=== PATIENT | male | born 1990 | race Caucasian/White ===

== ENCOUNTER 2016-10-26 12:24 | Emergency (ER) | payer MEDICAID ==
[~2016-10-26] VITALS: Ht 182.9 cm; Wt 100.2 kg
[2016-10-26 12:47] LABS: Basophils # (auto) 0 uL; Basophils % (auto) 0.6 % (0.0-2.0); Eosinophils # (auto) 0.5 uL; Eosinophils % (auto) 9.5 % (0.0-7.0); Hematocrit 41.1 % (41.0-53.0); Hemoglobin 13.6 g/dL (13.5-17.5); Lymphocytes # (auto) 2.3 uL; Lymphocytes % (auto) 43.1 % (10.0-50.0); Mean Corpuscular Hemoglobin 29.6 pg (28.0-32.0); Mean Corpuscular Hgb Conc. 33.1 g/dL (32.0-36.0); Mean Corpuscular Volume 89.4 fL (80.0-100.0); Mean Platelet Volume 7.1 fL (7.4-10.4); Monocytes # (auto) 0.5 uL; Monocytes % (auto) 10.5 % (0.0-12.0); Neutrophils # (auto) 1.9 uL; Neutrophils % (auto) 36.3 % (37.0-80.0); Platelet Count (auto) 260 10^3/uL (140-450); Red Cell Distribution Width 12.9 % (11.6-16.0); White Blood Cell 5.2 10^3/uL (4.4-10.8)
[2016-10-26 13:10] LABS: BUN/Creatinine Ratio 12.2; Bilirubin, Total 0.3 mg/dL (0.2-1.0); Calcium 8.6 mg/dL (8.5-10.1); Magnesium 2.2 mg/dL (1.6-2.6); Potassium 4.1 mmol/L (3.5-5.1); Total Protein 7.3 g/dL (6.4-8.2)
[2016-10-26 20:50] VITALS: BP 121/62
== END 2016-10-26 20:25 | disposition home or self-care (01) ==
LOC: ER 12:25
DX: M54.12 Radiculopathy, cervical region (principal); S22.059S Unspecified fracture of T5-T6 vertebra, sequela; F15.10 Other stimulant abuse, uncomplicated
CPT/HCPCS: 36415; 80053; 83735; 84484; 85025; 93005

== ENCOUNTER 2016-11-22 11:14 | Emergency (ER) | payer MEDICAID ==
[~2016-11-22] VITALS: Ht 182.9 cm; Wt 97.5 kg
[2016-11-22 11:25] VITALS: BP 135/98
[2016-11-22] MEDS ORDERED: KETOROLAC TROMETH 60MG/2ML VIAL IM ONE (11:45)
== END 2016-11-22 12:45 | disposition home or self-care (01) ==
LOC: ER 11:14
DX: S16.1XXA Strain of muscle, fascia and tendon at neck level, initial encounter (principal); F90.9 Attention-deficit hyperactivity disorder, unspecified type; R51 Headache; F15.10 Other stimulant abuse, uncomplicated; V87.8XXA Person injured in other specified noncollision transport accidents involving motor vehicle (traffic), initial encounter; Y93.55 Activity, bike riding; Y99.8 Other external cause status; Y92.89 Other specified places as the place of occurrence of the external cause
CPT/HCPCS: 70450; 72125; 96372; 99284; J1885

== ENCOUNTER 2016-12-01 20:24 | Emergency (ER) | payer MEDICAID ==
[~2016-12-01] VITALS: Ht 182.9 cm; Wt 95.3 kg
[2016-12-01 20:54] LABS: Urine Squamous Epithelial Cell None Seen /hpf (<5)
[2016-12-01 21:00] VITALS: BP 147/98
[2016-12-01 21:01] LABS: Basophils # (auto) 0 uL; Basophils % (auto) 0.2 % (0.0-2.0); Eosinophils # (auto) 0 uL; Eosinophils % (auto) 0.5 % (0.0-7.0); Hemoglobin 14.8 g/dL (13.5-17.5); Lymphocytes # (auto) 2.2 uL; Lymphocytes % (auto) 29.9 % (10.0-50.0); Mean Corpuscular Hemoglobin 28.9 pg (28.0-32.0); Mean Corpuscular Hgb Conc. 32.1 g/dL (32.0-36.0); Mean Corpuscular Volume 90.1 fL (80.0-100.0); Mean Platelet Volume 7.1 fL (7.4-10.4); Monocytes # (auto) 0.8 uL; Monocytes % (auto) 10.2 % (0.0-12.0); Neutrophils # (auto) 4.3 uL; Neutrophils % (auto) 59.2 % (37.0-80.0); Platelet Count (auto) 324 10^3/uL (140-450); Red Cell Distribution Width 13.8 % (11.6-16.0); White Blood Cell 7.3 10^3/uL (4.4-10.8)
[2016-12-01 21:24] LABS: Albumin 4.5 g/dL (3.4-5.0); BUN/Creatinine Ratio 16.5; Bilirubin, Total 0.4 mg/dL (0.2-1.0); Calcium 9.6 mg/dL (8.5-10.1); Potassium 3.5 mmol/L (3.5-5.1)
[2016-12-01 21:26] LABS: Urine Bilirubin Negative (Negative); Urine Blood Negative /uL (Negative); Urine Color Colorless (Yellow); Urine Glucose Normal (Normal); Urine Ketone Negative (Negative); Urine Nitrite Negative (Negative); Urine Urobilinogen Normal (Negative)
[2016-12-01 21:27] LABS: Urine RBC 0 /hpf (0 - 3)
[2016-12-01] MEDS ORDERED: LORazepam 0.5 MG TAB PO ONE (23:00)
== END 2016-12-01 23:06 | disposition home or self-care (01) ==
LOC: EDBD 20:24 → ER 20:29
DX: T43.621A Poisoning by amphetamines, accidental (unintentional), initial encounter (principal); F41.9 Anxiety disorder, unspecified; R00.2 Palpitations; R06.02 Shortness of breath; Y92.89 Other specified places as the place of occurrence of the external cause
CPT/HCPCS: 36415; 80053; 81001; 84484; 85025; 99284; G0434

== ENCOUNTER 2016-12-02 | Emergency (ER) | payer MEDICAID ==
[~2016-12-02] VITALS: Ht 182.9 cm; Wt 95.3 kg
[2016-12-02 00:07] VITALS: BP 120/84
[2016-12-02] MEDS ORDERED: ONDANSETRON HCL 4 MG/2 ML VIAL IM ONE (02:00)
[2016-12-02] MEDS ORDERED: HYDROmorphone HCL 2 MG/ML VL IM ONE (02:00)
== END 2016-12-02 02:16 | disposition home or self-care (01) ==
LOC: ER 00:03
DX: G89.29 Other chronic pain (principal); M54.6 Pain in thoracic spine; M79.1 Myalgia; F15.10 Other stimulant abuse, uncomplicated
CPT/HCPCS: 96372; 99284; J1170; J2405

== ENCOUNTER 2016-12-22 13:20 | Emergency (ER) | payer MEDICAID ==
[~2016-12-22] VITALS: Ht 182.9 cm; Wt 95.3 kg
[2016-12-22 13:20] VITALS: BP_SYST 122
[2016-12-22] MEDS ORDERED: KETOROLAC TROMETH 60MG/2ML VIAL IM ONE (16:00)
== END 2016-12-22 15:51 | disposition home or self-care (01) ==
LOC: ER 13:26
DX: S30.0XXA Contusion of lower back and pelvis, initial encounter (principal); F15.10 Other stimulant abuse, uncomplicated; V29.69XA Unspecified motorcycle rider injured in collision with other motor vehicles in traffic accident, initial encounter; Y93.89 Activity, other specified; Y99.8 Other external cause status; Y92.488 Other paved roadways as the place of occurrence of the external cause
CPT/HCPCS: 96372; 99283; J1885

== ENCOUNTER 2017-01-17 18:11 | Emergency (ER) | payer MEDICAID ==
[~2017-01-17] VITALS: Ht 182.9 cm; Wt 102.1 kg
[2017-01-17 18:17] VITALS: BP 135/95
[2017-01-17 19:15] LABS: Basophils # (auto) 0 uL; Basophils % (auto) 0.4 % (0.0-2.0); Eosinophils # (auto) 0.1 uL; Eosinophils % (auto) 0.8 % (0.0-7.0); Hematocrit 48.2 % (41.0-53.0); Hemoglobin 16.1 g/dL (13.5-17.5); Lymphocytes # (auto) 1.6 uL; Lymphocytes % (auto) 18.2 % (10.0-50.0); Mean Corpuscular Hemoglobin 30.1 pg (28.0-32.0); Mean Corpuscular Hgb Conc. 33.5 g/dL (32.0-36.0); Mean Platelet Volume 7.1 fL (7.4-10.4); Monocytes # (auto) 0.4 uL; Monocytes % (auto) 4.3 % (0.0-12.0); Neutrophils # (auto) 6.8 uL; Neutrophils % (auto) 76.3 % (37.0-80.0); Platelet Count (auto) 310 10^3/uL (140-450)
[2017-01-17 19:27] LABS: Albumin 4.5 g/dL (3.4-5.0); Anion Gap 9 (5-15); Aspartate Aminotransferase 15 U/L (15-37); BUN/Creatinine Ratio 13.3; Blood Urea Nitrogen 12 mg/dL (7-18); Calcium 9.3 mg/dL (8.5-10.1); Carbon Dioxide 25 mmol/L (21-32); Chloride 105 mmol/L (98-107); GFR African American 130 mL/min; GFR Non-African American 108 mL/min; Glucose 96 mg/dL (74-106); Magnesium 2.4 mg/dL (1.6-2.6); Potassium 3.8 mmol/L (3.5-5.1); Sodium 139 mmol/L (136-145)
[2017-01-17 19:28] LABS: Salicylate < 1.7 mg/dL (2.8-20.0)
[2017-01-17 19:30] LABS: Acetaminophen < 2.0 ug/mL (10-30)
[2017-01-17 19:31] LABS: Alkaline Phosphatase 62 U/L (45-117); Bilirubin, Total 0.4 mg/dL (0.2-1.0)
[2017-01-17] MEDS: SODIUM CHLORIDE 0.9% 1,000 ML IVB ONE (20:27)
[2017-01-17 21:11] LABS: Urine RBC None Seen /hpf (0 - 3)
[2017-01-17 21:32] LABS: Urine Blood Negative /uL (Negative); Urine Color Yellow (Yellow); Urine Glucose Normal (Normal); Urine Ketone Negative (Negative); Urine Mucus FEW (None Seen); Urine Nitrite Negative (Negative); Urine Urobilinogen Normal (Negative); Urine pH 6.5 (5.0-8.0)
[2017-01-17 21:41] LABS: Urine Bilirubin POSITIVE (Negative)
== END 2017-01-17 21:36 | disposition left against medical advice (07) ==
LOC: ER 18:11
DX: R00.2 Palpitations (principal); F17.210 Nicotine dependence, cigarettes, uncomplicated; R07.9 Chest pain, unspecified; F12.10 Cannabis abuse, uncomplicated; F15.10 Other stimulant abuse, uncomplicated; Z53.29 Procedure and treatment not carried out because of patient's decision for other reasons
CPT/HCPCS: 36415; 71020; 80053; 80320; 80329; 81001; 83735; 84484; 85025; 93005; 94761; 96360; 99285; G0434; J7030

== ENCOUNTER 2017-01-18 09:15 | Emergency (ER) | payer MEDICAID ==
[~2017-01-18] VITALS: Ht 182.9 cm; Wt 99.8 kg
[2017-01-18 09:27] VITALS: BP 130/87
== END 2017-01-18 10:29 | disposition left against medical advice (07) ==
LOC: ER 09:15
DX: R06.02 Shortness of breath (principal); Z53.21 Procedure and treatment not carried out due to patient leaving prior to being seen by health care provider
CPT/HCPCS: 82962; 93005

== ENCOUNTER 2019-11-06 14:15 | Emergency (ER) | payer MEDICAID, OTHER ==
[2019-11-06] MEDS ORDERED: IBUPROFEN 800 MG TAB PO ONE (17:15)
== END 2019-11-06 18:39 | disposition home or self-care (01) ==
LOC: ER 14:31
DX: S01.91XA Laceration without foreign body of unspecified part of head, initial encounter (principal); F17.210 Nicotine dependence, cigarettes, uncomplicated; F12.10 Cannabis abuse, uncomplicated; F15.10 Other stimulant abuse, uncomplicated; W19.XXXA Unspecified fall, initial encounter; Y93.89 Activity, other specified; Y99.8 Other external cause status; Y92.89 Other specified places as the place of occurrence of the external cause
CPT/HCPCS: 70450

== ENCOUNTER 2022-09-03 03:23 | Emergency (ER) | payer MEDICAID, OTHER ==
[~2022-09-03] VITALS: Ht 182.9 cm; Wt 100.0 kg
[2022-09-03 04:02] VITALS: BP 132/78
[2022-09-03] MEDS ORDERED: IBUPROFEN 800 MG TAB PO ONE (04:15)
== END 2022-09-03 06:54 | disposition left against medical advice (07) ==
LOC: EDBD 03:23 → ER 03:23
DX: L03.114 Cellulitis of left upper limb (principal)

== ENCOUNTER 2023-01-29 21:00 | Emergency (ER) | payer OTHER | END 2023-01-30 01:09 | disposition left against medical advice (07) | LOC: ER 21:00 | DX: Z76.0 Encounter for issue of repeat prescription (principal); Z53.21 Procedure and treatment not carried out due to patient leaving prior to being seen by health care provider ==

== ENCOUNTER 2023-03-11 15:31 | Emergency (ER) | payer OTHER ==
[~2023-03-11] VITALS: Ht 177.8 cm; Wt 85.0 kg
[2023-03-11 15:56] VITALS: BP 127/86
[2023-03-11] MEDS ORDERED: ONDANSETRON ODT 4 MG TAB PO ONE (16:15)
[2023-03-11 17:00] LABS: Anion Gap 3 (5-15); Blood Alcohol < 3.0 mg/dL (0-5); Blood Urea Nitrogen 20 mg/dL (7-18); Carbon Dioxide 27 mmol/L (21-32); Chloride 106 mmol/L (98-107); Glucose 88 mg/dL (74-106); Sodium 136 mmol/L (136-145)
[2023-03-11 17:02] LABS: Basophils # (auto) 0 10 ^3/uL (0-0.2); Basophils % (auto) 0.3 % (0.0-2.0); Eosinophils # (auto) 0.2 10 ^3/uL (0-0.8); Eosinophils % (auto) 2.1 % (0.0-7.0); Hematocrit 38.9 % (41.0-53.0); Lymphocytes # (auto) 1.6 10 ^3/uL (0.4-5.4); Mean Corpuscular Hemoglobin 29.6 pg (28.0-32.0); Mean Corpuscular Hgb Conc. 33.5 g/dL (32.0-36.0); Mean Corpuscular Volume 88.2 fL (80.0-100.0); Monocytes # (auto) 0.7 10 ^3/uL (0-1.3); Monocytes % (auto) 6.6 % (0.0-12.0); Neutrophils # (auto) 8.7 10 ^3/uL (1.6-8.6); Red Blood Cells 4.41 10^6/uL (4.5-5.90); Red Cell Distribution Width 14.9 % (11.8-14.3); White Blood Cell 11.2 10^3/uL (4.4-10.8)
[2023-03-11 17:03] LABS: Salicylate < 1.7 mg/dL (2.8-20.0)
[2023-03-11 17:04] LABS: Alanine Aminotransferase 35 U/L (16-61); Alkaline Phosphatase 69 U/L (45-117); Aspartate Aminotransferase 31 U/L (15-37); BUN/Creatinine Ratio 20.8 (10.0-20.0); Bilirubin, Total 0.4 mg/dL (0.2-1.0); GFR African American 115 mL/min; GFR Non-African American 95 mL/min; Total Protein 7.4 g/dL (6.4-8.2)
[2023-03-11 17:05] LABS: Acetaminophen < 2.0 ug/mL (10-30)
== END 2023-03-11 20:42 | disposition left against medical advice (07) ==
LOC: ER 15:31 → EDBD 15:31 → ER 20:42
DX: T50.7X Poisoning by, adverse effect of and underdosing of analeptics and opioid receptor antagonists (principal); R06.02 Shortness of breath; Z53.21 Procedure and treatment not carried out due to patient leaving prior to being seen by health care provider; Y92.89 Other specified places as the place of occurrence of the external cause
CPT/HCPCS: 36415; 71045; 80053; 80320; 80329; 85025; 93005

== ENCOUNTER 2023-09-01 23:51 | Emergency (ER) | payer MEDICAID ==
[~2023-09-01] VITALS: Ht 175.3 cm; Wt 81.7 kg
[2023-09-02 00:09] VITALS: BP 159/89; PULSE 74; RESP 20; O2SAT 100
== END 2023-09-02 07:26 | disposition left against medical advice (07) ==
LOC: ER 23:51 → EDUNIT# 23:51 → EDBD 23:51 → ER 09-02 07:26
DX: R00.2 Palpitations (principal); F17.210 Nicotine dependence, cigarettes, uncomplicated; F12.10 Cannabis abuse, uncomplicated; F15.10 Other stimulant abuse, uncomplicated

== ENCOUNTER → 2023-09-27 | Emergency (ER) | payer MEDICAID ==
[~2023-09-27] VITALS: Ht 182.9 cm; Wt 85.0 kg
[2023-09-27 15:23] VITALS: BP 144/84; PULSE 88; RESP 18; O2SAT 100
== END | disposition left against medical advice (07) ==
LOC: EDUNIT# 14:47 → EDBD 14:54 → ER 14:54
DX: F19.10 Other psychoactive substance abuse, uncomplicated (principal); F17.210 Nicotine dependence, cigarettes, uncomplicated; F12.10 Cannabis abuse, uncomplicated; F15.10 Other stimulant abuse, uncomplicated; R41.82 Altered mental status, unspecified; Z59.00 Homelessness unspecified

== ENCOUNTER 2023-11-30 21:52 | Emergency (ER) | payer MEDICAID ==
[~2023-11-30] VITALS: Ht 182.9 cm; Wt 95.5 kg
[2023-11-30 22:02] VITALS: BP 136/48; PULSE 62; RESP 18; O2SAT 96
== END 2023-12-01 00:40 | disposition left against medical advice (07) ==
LOC: ER 21:52
DX: M25.572 Pain in left ankle and joints of left foot (principal); Z53.21 Procedure and treatment not carried out due to patient leaving prior to being seen by health care provider; W18.39XA Other fall on same level, initial encounter; Y93.89 Activity, other specified; Y92.89 Other specified places as the place of occurrence of the external cause; Y99.8 Other external cause status

== ENCOUNTER 2023-12-22 21:43 | Emergency (ER) | payer MEDICAID ==
[~2023-12-22] VITALS: Ht 177.8 cm; Wt 90.0 kg
[2023-12-22 21:43] VITALS: PULSE 114; RESP 18; O2SAT 95
[2023-12-22] MEDS: SODIUM CHLORIDE 0.9% 1,000 ML IV ONE (22:00)
== END 2023-12-23 00:35 | disposition home or self-care (01) ==
LOC: EDBD 21:43 → ER 21:43
DX: F12.10 Cannabis abuse, uncomplicated (principal); F15.10 Other stimulant abuse, uncomplicated; F17.210 Nicotine dependence, cigarettes, uncomplicated; Z59.00 Homelessness unspecified
CPT/HCPCS: 36415; 80320

== ENCOUNTER 2024-02-20 15:14 | Emergency (ER) | payer MEDICAID ==
[~2024-02-20] VITALS: Ht 195.6 cm; Wt 87.9 kg
[2024-02-20] MEDS: diphenhdrAMINE HCL 50 MG/1 ML VL IV ONE (16:15)
[2024-02-20 16:38] LABS: Basophils # (auto) 0 10 ^3/uL (0-0.2); Basophils % (auto) 0.4 % (0.0-2.0); Eosinophils # (auto) 0 10 ^3/uL (0-0.8); Eosinophils % (auto) 0.2 % (0.0-7.0); Hematocrit 42.2 % (41.0-53.0); Hemoglobin 14.1 g/dL (13.5-17.5); Lymphocytes # (auto) 1.6 10 ^3/uL (0.4-5.4); Lymphocytes % (auto) 19.2 % (10.0-50.0); Mean Corpuscular Hemoglobin 29.4 pg (28.0-32.0); Mean Corpuscular Hgb Conc. 33.3 g/dL (32.0-36.0); Mean Corpuscular Volume 88.2 fL (80.0-100.0); Monocytes # (auto) 0.7 10 ^3/uL (0-1.3); Monocytes % (auto) 8.3 % (0.0-12.0); Neutrophils # (auto) 6.1 10 ^3/uL (1.6-8.6); Neutrophils % (auto) 71.9 % (37.0-80.0); Red Blood Cells 4.79 10^6/uL (4.5-5.90); Red Cell Distribution Width 14.5 % (11.8-14.3); White Blood Cell 8.5 10^3/uL (4.4-10.8)
[2024-02-20 16:40] VITALS: PULSE 83; RESP 12; O2SAT 100
[2024-02-20 17:00] LABS: Magnesium 2.1 mg/dL (1.6-2.6)
[2024-02-20 17:01] LABS: Acetaminophen < 2.0 UG/ML (10.0-20.0)
[2024-02-20 17:05] LABS: Anion Gap 13 (5-15); BUN/Creatinine Ratio 32.4 (10.0-20.0); Blood Alcohol < 3.0 mg/dL (<10)
[2024-02-20 17:33] LABS: Salicylate < 3.0 mg/dL (2.8-20.0)
[2024-02-20 17:34] LABS: Alanine Aminotransferase 33 U/L (7-40); Albumin 4.8 g/dL (3.2-4.8); Alkaline Phosphatase 71 U/L (46-116); Aspartate Aminotransferase 42 U/L (13-40); Bilirubin, Total 1.1 mg/dL (0.2-1.0); Blood Urea Nitrogen 33 mg/dL (9-23); Calcium 9.9 mg/dL (8.5-10.1); Carbon Dioxide 19 mmol/L (20-30); Chloride 106 mmol/L (98-107); Glucose 92 mg/dL (74-106); Sodium 138 mmol/L (136-145); Total Protein 7.5 g/dL (5.7-8.2)
[2024-02-20] MEDS: LORazepam 2MG/ML-1ML VIAL IV ONE (17:41)
[2024-02-20] MEDS: HALOPERIDOL LACTATE 5 MG/ML INJ VIAL IV ONE (17:42)
[2024-02-20 19:30] VITALS: PULSE 69; RESP 12; O2SAT 93
[2024-02-21 08:43] VITALS: BP 98/57; PULSE 84; RESP 17; TEMP 98.7; O2SAT 97
[2024-02-21] MEDS ORDERED: hydrOXYzine 25 MG TAB or CAP PO PRN (10:00)
[2024-02-21] MEDS ORDERED: QUET50TA PO (11:11)
[2024-02-21] MEDS ORDERED: HYDR25CA PO (11:11)
[2024-02-21] MEDS ORDERED: QUEtiapine FUMARATE 25 MG TAB PO SCH (22:00)
== END 2024-02-21 11:20 | disposition home or self-care (01) ==
LOC: ER 15:14
DX: R41.82 Altered mental status, unspecified (principal); F17.210 Nicotine dependence, cigarettes, uncomplicated; F12.10 Cannabis abuse, uncomplicated; F15.10 Other stimulant abuse, uncomplicated; Z59.00 Homelessness unspecified; Z79.899 Other long term (current) drug therapy
CPT/HCPCS: 36415; 70450; 71045; 80053; 80320; 80329; 82140; 82962; 83605; 83735; 84484; 85025; 87040; 96374; 96375; 99285; J1630; J2060

== ENCOUNTER 2024-07-13 02:04 | Emergency (ER) | payer MEDICAID ==
[~2024-07-13] VITALS: Ht 182.9 cm; Wt 85.1 kg
[~2024-07-13 02:04] MED LIST: HYDR25CA PO; QUET50TA PO
[2024-07-13 02:15] VITALS: BP 140/80; PULSE 92; RESP 20; O2SAT 96
[2024-07-13] MEDS: IBUPROFEN 800 MG TAB PO ONE (03:21)
== END 2024-07-13 03:22 | disposition home or self-care (01) ==
LOC: ER 02:04
DX: J98.01 Acute bronchospasm (principal); F17.210 Nicotine dependence, cigarettes, uncomplicated; F12.10 Cannabis abuse, uncomplicated; F15.10 Other stimulant abuse, uncomplicated; G89.29 Other chronic pain; M25.562 Pain in left knee; M25.561 Pain in right knee; Z59.00 Homelessness unspecified
CPT/HCPCS: 71045

== ENCOUNTER 2024-07-14 13:04 | Emergency (ER) | payer MEDICAID ==
[~2024-07-14] VITALS: Ht 185.4 cm; Wt 91.9 kg
[2024-07-14 13:28] VITALS: BP 115/73; PULSE 68; RESP 20; O2SAT 97
[2024-07-14 15:01] LABS: Basophils # (auto) 0.1 10 ^3/uL (0-0.2); Basophils % (auto) 1.8 % (0.0-2.0); Eosinophils # (auto) 0.2 10 ^3/uL (0-0.8); Eosinophils % (auto) 3.7 % (0.0-7.0); Hematocrit 32.4 % (41.0-53.0); Lymphocytes # (auto) 1.3 10 ^3/uL (0.4-5.4); Lymphocytes % (auto) 27.3 % (10.0-50.0); Mean Corpuscular Hemoglobin 30.2 pg (28.0-32.0); Mean Corpuscular Volume 88.7 fL (80.0-100.0); Monocytes # (auto) 0.5 10 ^3/uL (0-1.3); Neutrophils # (auto) 2.7 10 ^3/uL (1.6-8.6); Neutrophils % (auto) 56.2 % (37.0-80.0); Nucleated Red Blood Cells % 0.1 %; Platelet Count (auto) 322 10^3/uL (140-450); Red Blood Cells 3.65 10^6/uL (4.5-5.90); Red Cell Distribution Width 15.1 % (11.8-14.3); White Blood Cell 4.7 10^3/uL (4.4-10.8)
[2024-07-14 15:10] LABS: Alanine Aminotransferase 25 U/L (7-40); Albumin 3.8 g/dL (3.2-4.8); Alkaline Phosphatase 62 U/L (46-116); Anion Gap 5 (5-15); Aspartate Aminotransferase 19 U/L (13-40); BUN/Creatinine Ratio 26.4 (10.0-20.0); Bilirubin, Total 0.2 mg/dL (0.2-1.0); Blood Alcohol 9.1 mg/dL (<10); Blood Urea Nitrogen 19 mg/dL (9-23); Calcium 8.8 mg/dL (8.7-10.4); Carbon Dioxide 23 mmol/L (20-30); Chloride 109 mmol/L (98-107); Glucose 93 mg/dL (74-106); Potassium 4.5 mmol/L (3.5-5.1); Sodium 137 mmol/L (136-145); Total Protein 6.2 g/dL (5.7-8.2)
[2024-07-14 15:12] LABS: Salicylate < 3.0 mg/dL (2.8-20.0)
[2024-07-16] MEDS ORDERED: METH4PAK PO (04:11)
== END 2024-07-15 05:51 | disposition left against medical advice (07) ==
LOC: ER 13:04
DX: R45.851 Suicidal ideations (principal); F32.9 Major depressive disorder, single episode, unspecified; F12.10 Cannabis abuse, uncomplicated; F15.10 Other stimulant abuse, uncomplicated; Z59.00 Homelessness unspecified
CPT/HCPCS: 36415; 80053; 80320; 80329; 85025

== ENCOUNTER 2024-07-16 00:35 | Emergency (ER) | payer MEDICAID ==
[~2024-07-16] VITALS: Ht 182.9 cm; Wt 87.9 kg
[2024-07-16 01:15] VITALS: BP 121/73; PULSE 83; RESP 18; TEMP 98; O2SAT 98
[2024-07-16] MEDS ORDERED: METH4PAK PO (04:11)
[2024-07-16] MEDS: HYDROcodone-ACET 5/325MG TAB PO ONE (04:14)
[2024-07-16] MEDS: KETOROLAC TROMETH 60MG/2ML VIAL IM ONE (04:14)
== END 2024-07-16 04:28 | disposition home or self-care (01) ==
LOC: ER 00:35
DX: M70.52 Other bursitis of knee, left knee (principal); F12.10 Cannabis abuse, uncomplicated; F15.10 Other stimulant abuse, uncomplicated; Z59.00 Homelessness unspecified
CPT/HCPCS: 73562; 96372; 99283; J1885

== ENCOUNTER 2024-07-20 02:41 | Emergency (ER) | payer MEDICAID ==
[~2024-07-20] VITALS: Ht 182.9 cm; Wt 84.0 kg
[~2024-07-20 02:41] MED LIST changes: +METH4PAK PO
[2024-07-20 02:45] VITALS: BP 146/97; PULSE 104; RESP 20; TEMP 98.3; O2SAT 96
[2024-07-20] MEDS ORDERED: FLUORESCEIN SOD OPTH TEST STRIP LEFTEYE ONE (04:00)
[2024-07-20] MEDS ORDERED: TETRACAINE HCL 0.5% OPTH(EYE) SOLN 4ML LEFTEYE ONE (04:00)
== END 2024-07-20 04:53 | disposition home or self-care (01) ==
LOC: ER 02:41
DX: S80.02XA Contusion of left knee, initial encounter (principal); F12.90 Cannabis use, unspecified, uncomplicated; Z59.00 Homelessness unspecified; Z79.899 Other long term (current) drug therapy; X58.XXXA Exposure to other specified factors, initial encounter; Y93.89 Activity, other specified; Y92.89 Other specified places as the place of occurrence of the external cause; Y99.8 Other external cause status

== ENCOUNTER 2024-08-25 08:46 | Emergency (ER) | payer MEDICAID ==
[~2024-08-25] VITALS: Ht 182.9 cm; Wt 97.7 kg
[2024-08-25 09:00] VITALS: PULSE 104; RESP 16; O2SAT 98
[2024-08-25 09:14] VITALS: BP 122/77; PULSE 104; RESP 16; O2SAT 98
== END 2024-08-25 14:24 | disposition left against medical advice (07) ==
LOC: EDBD 08:46 → EDUNIT# 08:46 → ER 08:46
DX: R45.851 Suicidal ideations (principal); F32.A Depression, unspecified; F15.10 Other stimulant abuse, uncomplicated; F12.10 Cannabis abuse, uncomplicated; Z59.00 Homelessness unspecified; Z98.890 Other specified postprocedural states

== ENCOUNTER 2025-09-21 10:16 | Emergency (ER) | payer MEDICAID, OTHER ==
[~2025-09-21] VITALS: Ht 185.4 cm; Wt 108.2 kg
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
[2025-09-21 10:49] LABS: Hematocrit 39.9 % (41.0-53.0); Hemoglobin 13.7 g/dL (13.5-17.5); Mean Corpuscular Hemoglobin 29.7 pg (28.0-32.0); Mean Corpuscular Volume 86.7 fL (80.0-100.0); Nucleated Red Blood Cells % 0.1 %
[2025-09-21] MEDS: ONDANSETRON HCL 4 MG/2 ML VIAL IV ONE (11:06)
[2025-09-21 11:13] LABS: Chloride 104 mmol/L (98-107); Potassium 4.0 mmol/L (3.5-5.1); Sodium 140 mmol/L (136-145)
[2025-09-21 11:14] LABS: Anion Gap 13 (5-15); Calcium 9.6 mg/dL (8.7-10.4); Carbon Dioxide 23 mmol/L (20-31)
[2025-09-21] MEDS: MORPHINE SULFATE 4 MG/ML SYR/VIAL IV ONE (11:16)
[2025-09-21] MEDS: MORPHINE SULFATE 4 MG/ML SYR/VIAL ONE (11:16)
[2025-09-21] MEDS: ONDANSETRON HCL 4 MG/2 ML VIAL ONE (11:16)
[2025-09-21 11:19] LABS: BUN/Creatinine Ratio 20.2 (10.0-20.0); Blood Urea Nitrogen 18 mg/dL (9-23); Glucose 95 mg/dL (74-106)
[2025-09-21] MEDS: HALOPERIDOL LACTATE 5 MG/ML INJ VIAL IM ONE (12:03)
[2025-09-21] MEDS: LORazepam 2MG/ML-1ML VIAL IV ONE (12:08)
[2025-09-21 13:00] VITALS: PULSE 113; RESP 22; TEMP 98.7; O2SAT 100
[2025-09-21 15:03] VITALS: BP 104/70; PULSE 89; RESP 16; O2SAT 100
--- NOTE | 2025-09-21 15:51 | ECG ---
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
--- NOTE | 2025-09-24 07:20 | ECG ---
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
== END 2025-09-21 16:58 | disposition home or self-care (01) ==
LOC: ER 10:16
DX: R07.89 Other chest pain (principal); F15.90 Other stimulant use, unspecified, uncomplicated; Z98.890 Other specified postprocedural states
CPT/HCPCS: 36415; 80048; 84484; 85025; 93005; 96372; 96374; 96375; 99285; J1630; J2060; J2270; J2405